=== PATIENT | female | born 1945 | race Hispanic/Latino ===

== ENCOUNTER → 2018-12-29 | Outpatient (CLI) | payer MEDICARE ==
[~2018-12-29] MED LIST: DIATRIZOATE MEGL/DIATRIZOA SOD 30 ML BTL PO ONE; IOPAMIDOL 370 MG/ML 200 ML INFUS..BTL INJ ONE; SODIUM CHLORIDE 0.9% 50ML 50 ML ONE
[2018-12-29 10:04] LABS: BLOOD UREA NITROGEN 18 mg/dL (7-26); BUN/CREATININE RATIO 23 (6-25); CREATININE, SERUM 0.79 mg/dL (0.57-1.11); EST GLOMERULAR FILTRATION RATE > 60 ML/MIN (60-)
--- NOTE | 2018-12-29 11:00 | Diagnostic Imaging Report ---
EXAM: CT Abdomen and Pelvis WITH contrast INDICATION: Abdominal pain, query diverticulitis. COMPARISON: None. TECHNIQUE: Abdomen and pelvis were scanned utilizing a multidetector helical scanner from the lung base to the pubic symphysis after administration of IV contrast. Coronal and sagittal reformations were obtained. Routine protocol was performed. Scan was performed when during portal venous phase. IV CONTRAST: 100 cc of Isovue 370 ORAL CONTRAST: Gastrografin COMPLICATIONS: None RADIATION DOSE: Total DLP: 518.2 mGy*cm Dose modulation, iterative reconstruction, and/or weight based adjustment of the mA/kV was utilized to reduce the radiation dose to as low as reasonably achievable. FINDINGS: LINES and TUBES: None. LOWER THORAX: Patchy atelectasis in the lower lobes. HEPATOBILIARY: Multiple bilateral subcentimeter hepatic lesions are too small to characterize, but may represent cysts. Diffuse mild hepatic steatosis. No biliary ductal dilation. GALLBLADDER: Cholelithiasis without CT evidence of cholecystitis. SPLEEN: No splenomegaly. PANCREAS: No focal masses or ductal dilatation. ADRENALS: No adrenal nodules KIDNEYS/URETERS: Kidneys enhance symmetrically. No evidence of hydronephrosis, solid mass, or stone. Subcentimeter bilateral renal hypodensities are too small to characterize but likely represent cysts. GI TRACT: No evidence of wall thickening or distension. Appendix is normal. There is scattered sigmoid colonic diverticulosis without CT evidence of diverticulitis. PELVIC ORGANS/BLADDER: Unremarkable. LYMPH NODES: No lymphadenopathy. VESSELS: Moderate atherosclerotic calcifications of the abdominal aorta and branch vessels. PERITONEUM / RETROPERITONEUM: No free air or fluid. BONES AND SOFT TISSUES: No acute osseous abnormality. No suspicious lytic or blastic lesions. CONCLUSION: Sigmoid colonic diverticulosis without CT evidence of diverticulitis. Cholelithiasis. Diffuse mild hepatic steatosis. Signed by: Dr. Saman Nagy MD on 12/29/2018 10:56 AM
== END ==
LOC: CT 08:55
PROVIDERS: ATTEND Family Medicine
DX: K57.92 Diverticulitis of intestine, part unspecified, without perforation or abscess without bleeding (principal)
CPT/HCPCS: 36415; 74177; 82565; 84520; Q9967

== ENCOUNTER 2020-08-08 09:59 | Outpatient (RCR) | payer MEDICARE | END 2020-08-29 | LOC: PT 09:59 | PROVIDERS: ATTEND Specialist | DX: S82.002A Unspecified fracture of left patella, initial encounter for closed fracture (principal) ==

== ENCOUNTER → 2021-10-22 | Outpatient (CLI) | payer MEDICARE | LOC: RAD 10:10 | PROVIDERS: ATTEND Family Medicine | DX: M25.511 Pain in right shoulder (principal) ==

== ENCOUNTER → 2021-11-20 | Outpatient (CLI) | payer MEDICARE | LOC: MRI 08:43 | PROVIDERS: ATTEND Specialist | DX: M75.121 Complete rotator cuff tear or rupture of right shoulder, not specified as traumatic (principal); M19.011 Primary osteoarthritis, right shoulder ==

== ENCOUNTER → 2022-04-20 | Outpatient (CLI) | payer MEDICARE | LOC: RAD 10:32 | PROVIDERS: ATTEND Family Medicine | DX: M54.2 Cervicalgia (principal) | CPT/HCPCS: 72050 ==